=== PATIENT | male | born 1975 | race Caucasian/White ===

== ENCOUNTER → 2018-03-28 | Day surgery (SDC) | payer OTHER ==
[~2018-03-28] MED LIST: Glucagon,Human Recombinant 1 MG Vial IM ONE; Midazolam 1 MG/ML 2 ML SDV ONE; Propofol 200 MG/20 ML SDV ONE; fentaNYL 100 MCG/2 ML SDV ONE
--- NOTE | 2018-03-28 14:00 | EDM.PDOC ---
ED HPI GENERAL MEDICAL PROBLEM - General Chief Complaint: ENT Problem Stated Complaint: FOOD STUCK IN THROAT/CAN'T SWALLOW ANYTHING Time Seen by Provider: 03/28/18 13:20 Source of Information: Reports: Patient History Limitations: Reports: No Limitations - History of Present Illness INITIAL COMMENTS - FREE TEXT/NARRATIVE: states he was eating chicken last night and since then, food has been lodged in his throat; He can't swallow water Has had this happen before in the past but would usually improve Is requesting a "scope". VSS No difficulty breathing, wheezing, work of breath. Onset: Gradual Duration: Day(s): Location: Reports: Neck Quality: Reports: Pressure Severity: Moderate Improves with: Reports: None Worsens with: Reports: None - Related Data Allergies Allergy/AdvReac Type Severity Reaction Status Date / Time amoxicillin [From Augmentin] Allergy Hives Verified 03/28/18 13:15 clavulanic acid Allergy Hives Verified 03/28/18 13:15 [From Augmentin] iodine Allergy Swelling Verified 03/28/18 13:15 Penicillins Allergy Hives Verified 03/28/18 13:15 Home Meds: Home Meds NK [No Known Home Meds] 03/28/18 [History] Past Medical History - Past Health History Medical/Surgical History: Denies Medical/Surgical History Social & Family History - Tobacco Use Smoking Status *Q: Never Smoker - Caffeine Use Caffeine Use: Reports: None - Recreational Drug Use Recreational Drug Use: No ED ROS GENERAL - Review of Systems Review Of Systems: ROS reveals no pertinent complaints other than HPI. ED EXAM, GENERAL - Physical Exam Exam: See Below Exam Limited By: No Limitations General Appearance: Alert, WD/WN, No Apparent Distress Throat/Mouth: Normal Inspection, No Airway Compromise, Dysphagia Head: Atraumatic, Normocephalic Neck: Normal Inspection Respiratory/Chest: No Respiratory Distress, Lungs Clear, Normal Breath Sounds, Chest Non-Tender Cardiovascular: Regular Rate, Rhythm GI/Abdominal: Normal Bowel Sounds Back Exam: Full Range of Motion. No: Normal Inspection Extremities: Normal Inspection, Normal Range of Motion Neurological: Alert, Oriented, CN II-XII Intact, Normal Cognition, Normal Gait, Normal Reflexes, No Motor/Sensory Deficits Psychiatric: Normal Affect, Normal Mood Skin Exam: Warm, Dry, Intact, Normal Color, No Rash Course - Vital Signs Last Recorded V/S: Last Vital Signs Temp 96.7 F 03/28/18 13:18 Pulse 75 03/28/18 13:18 Resp 18 03/28/18 13:18 BP 121/80 03/28/18 13:18 Pulse Ox 99 03/28/18 13:18 - Orders/Labs/Meds Meds: Medications Discontinued Medications Generic Name Dose Route Start Last Admin Trade Name Rodrigo PRN Reason Stop Dose Admin Fentanyl Confirm 03/28/18 14:59 Sublimaze Administered 03/28/18 15:00 Dose 100 mcg .ROUTE .STK-MED ONE Glucagon 1 mg 03/28/18 13:20 03/28/18 13:29 Glucagen IM 03/28/18 13:21 1 mg ONETIME ONE Administration Midazolam HCl Confirm 03/28/18 14:59 Versed 1 Mg/Ml Administered 03/28/18 15:00 Dose 2 mg .ROUTE .STK-MED ONE Propofol Confirm 03/28/18 14:59 Diprivan 20 Ml Administered 03/28/18 15:00 Dose 200 mg .ROUTE .STK-MED ONE Propofol Confirm 03/28/18 15:11 Diprivan 20 Ml Administered 03/28/18 15:12 Dose 200 mg .ROUTE .STK-MED ONE - Re-Assessments/Exams Free Text/Narrative Re-Assessment/Exam: 03/28/18 14:14 Was given glucagon IM at 1:30pm; followed by svetlana velásquez He seemed to get worse; having a hard time swallowing; trying to throw up. Surgeon called; he will take him now to go get Upper EGD. Departure - Departure Time of Disposition: 14:15 Disposition: Home, Self-Care 01 Condition: Good Clinical Impression: Foreign body in throat - Discharge Information
--- NOTE | 2018-03-29 08:05 | OR ---
DATE OF PROCEDURE: 03/28/2018 PREOPERATIVE DIAGNOSIS: Obstructing esophageal foreign body consistent with chicken. POSTOPERATIVE DIAGNOSIS: Obstructing esophageal foreign body consistent with chicken. PROCEDURE: Removal of obstructing esophageal foreign body consistent with chicken with esophagogastroduodenoscopy. SURGEON: Chirag Johnson MD. ANESTHESIA: IV anesthesia with monitored anesthesia care. INDICATION: This 42-year-old white male was eating chicken last night, when it became stuck in his esophagus. He is unable to swallow it. He is unable to handle his secretions. He presents to the emergency room, where attempts at relieving it in the ER were unsuccessful. A request was made for upper endoscopy to remove his obstructing esophageal foreign body. I counseled him for this, and he gave his informed consent to proceed. DESCRIPTION OF PROCEDURE: The patient was placed in the left lateral decubitus position. IV anesthesia was administered by the Anesthesia Service. Time-out was held. The flexible video Olympus upper endoscope was passed through his mouth, down the esophagus, and to the obstructing esophageal foreign body. We initially removed parts of it using a snare. We passed a basket and ultimately completed it with using a 3-prong device. This involved multiple endoscopies, about 7, to accomplish this. Once we got through the GE junction, the scope was then easily passed through the pylorus, into the duodenum, reaching its third portion. The scope was then slowly withdrawn, examining the mucosa throughout. No mucosal abnormalities were noted. There was no obvious stricture or lesion that could have caused his obstruction. The scope was then removed. He tolerated the procedure well. Chirag Johnson MD /[id number]
== END ==
LOC: JP.ED 12:36 → JP.SDS 14:27
PROVIDERS: ATTEND Surgery
DX: T18.128A Food in esophagus causing other injury, initial encounter (principal); Z88.0 Allergy status to penicillin; Z88.8 Allergy status to other drugs, medicaments and biological substances; Z91.048 Other nonmedicinal substance allergy status
CPT/HCPCS: 43247; 99283; J1610; J2250; J2704; J3010